=== PATIENT | male | born 1980 | race Caucasian/White ===

== ENCOUNTER 2019-08-12 20:49 | Emergency (ER) | payer MEDICAID ==
[~2019-08-12] VITALS: Ht 180.3 cm; Wt 101.0 kg
[2019-08-12 20:54] VITALS: BP 149/97
== END 2019-08-12 22:03 | disposition home or self-care (01) ==
LOC: ER 20:51
DX: S91.302A Unspecified open wound, left foot, initial encounter (principal); L03.116 Cellulitis of left lower limb; X58.XXXA Exposure to other specified factors, initial encounter; Y93.89 Activity, other specified; Y92.89 Other specified places as the place of occurrence of the external cause; Y99.8 Other external cause status
CPT/HCPCS: 99284